=== PATIENT | female | born 2000 | race Caucasian/White ===

== ENCOUNTER 2025-02-03 09:46 | Observation (INO) | payer MEDICARE ==
[~2025-02-03] VITALS: Ht 157.5 cm; Wt 89.5 kg
[~2025-02-03 09:46] MED LIST: CLONI1TA PO; FLUO60TA PO; HYDR-3363 PO; LIDOCAINE 2% 100 MG/5 ML SDV (FOR ANES.) As Ordered ONE; MIDAZOLAM INJ 2 MG/2 ML VIAL As Ordered ONE; OMEP40CA4 PO; ONDANSETRON 4MG/2ML VIAL As Ordered ONE; ROCURONIUM BROMIDE 50MG/5ML VIAL As Ordered ONE; SUGAMMADEX SODIUM 200 MG/2 ML VIAL As Ordered ONE; VYVA30CA4 PO; dexAMETHasone 4 MG/ML 1 ML VIAL As Ordered ONE; dexmedeTOMIDine (4 MCG/ML) 200 MCG/50 ML BTL As Ordered ONE
[2025-02-03 10:26] LABS: PLATELET COUNT, AUTOMATED 271 10^3/uL (150-450)
[2025-02-03 10:44] LABS: CALCIUM LEVEL 9.1 MG/DL (8.5-10.1); CARBON DIOXIDE LEVEL 29.0 MMOL/L (20-31); CHLORIDE LEVEL 104.0 MMOL/L (98-107); CREATININE FOR GFR 0.95 MG/DL (0.55-1.30); GLOMERULAR FILTRATION RATE 84.7 (>60); POTASSIUM SERUM 4.1 MMOL/L (3.5-5.1); SODIUM LEVEL 139.0 MMOL/L (136-145)
[2025-02-03] MEDS ORDERED: HOME MED LIST COMPLETE! XX SCH (11:00)
[2025-02-03] MEDS: SCOPOLAMINE 1MG TRANSDERMAL PATCH TOP ONE (11:22)
[2025-02-03] MEDS: LR 1,000 ML IV SCH ×2 (11:23→18:58)
[2025-02-03] MEDS: ceFAZolin SOD 2 GM IV ONCE IV ONE (13:40)
[2025-02-03] MEDS: HEPARIN SOD 5000 UNITS/ML 1 ML VIAL/SYRINGE SQ ONE (13:45)
[2025-02-03] MEDS ORDERED: LACRILUBE (AKWA TEARS) OPHTH OINT 3.5 GM As Ordered ONE (13:55)
[2025-02-03] MEDS: GENTAMICIN SULF 80 MG/2 ML VIAL As Ordered ONE (14:03)
[2025-02-03] MEDS ORDERED: PHENYLephrine 500MCG 5ML (100MCG/ML) SYRINGE As Ordered ONE (14:08)
[2025-02-03] MEDS ORDERED: ACETAMINOPHEN 1000MG/100ML IV BAG As Ordered ONE (14:12)
[2025-02-03] MEDS ORDERED: HYDROmorphone HCL 2 MG/ML 1 ML VIAL As Ordered ONE (14:58)
[2025-02-03] MEDS ORDERED: ONDANSETRON 4MG/2ML VIAL IV PRN (16:45)
[2025-02-03] MEDS ORDERED: MORPHINE 2 MG/ML 1 ML VIAL IV PRN (16:45)
[2025-02-03 18:30] VITALS: BP 119/60; TEMP 97.5; O2SAT 95
[2025-02-03 19:00] VITALS: BP 110/57; TEMP 97.2; O2SAT 95
[2025-02-03 20:21] VITALS: BP 128/77; TEMP 97.8; O2SAT 96
[2025-02-03 21:16] VITALS: BP 124/66; TEMP 97.7; O2SAT 96
[2025-02-03] MEDS: ceFAZolin SODIUM 2 GM in DEXTROSE 5% (D5W) ADV/MINI-BAG 50 ML IV SCH (22:05)
[2025-02-03] MEDS: ACETAMINOPHEN 325 MG TAB PO PRN (22:06)
[2025-02-03 22:17] VITALS: BP 140/75; TEMP 98; O2SAT 98
[2025-02-03] MEDS: ONDANSETRON 4MG/2ML VIAL IV PRN (23:24)
[2025-02-03] MEDS: PERCOCET 5MG/325MG TAB PO PRN (23:24)
[2025-02-03 23:45] VITALS: BP 126/82; TEMP 98.8; O2SAT 98
[2025-02-04] VITALS (8 sets, daily range): BP systolic 105–118; BP diastolic 55–63; TEMP 97.9–98.8; O2SAT 96–100
[2025-02-04] MEDS: traMADol 50 MG TAB PO PRN (02:40)
[2025-02-04] MEDS ORDERED: ONDANSETRON 4MG/2ML VIAL IV PRN (03:45)
[2025-02-04] MEDS ORDERED: MORPHINE 2 MG/ML 1 ML VIAL IV PRN (03:45)
[2025-02-04] MEDS ORDERED: TRANEXAMIC ACID 100 MG/ML 10ML VIAL As Ordered ONE (03:54)
[2025-02-04] MEDS: ONDANSETRON 4MG/2ML VIAL IV PRN (04:42)
[2025-02-04] MEDS: MORPHINE 2 MG/ML 1 ML VIAL IV PRN (04:54)
[2025-02-04] MEDS: HALOPERIDOL LACTATE 5 MG/ML VIAL IV PRN (05:03)
[2025-02-04 08:31] LABS: PLATELET COUNT, AUTOMATED 268 10^3/uL (150-450)
[2025-02-04] MEDS: FLUoxetine 20 MG CAP PO SCH (09:00)
[2025-02-05 00:52] VITALS: BP 94/71; TEMP 98.3; O2SAT 97
[2025-02-05 05:04] VITALS: BP 110/63; TEMP 98; O2SAT 98
[2025-02-05 09:00] VITALS: BP 108/56; TEMP 97.9; O2SAT 98
[2025-02-05] MEDS ORDERED: PERCOCET PO (12:24)
== END 2025-02-05 13:37 | disposition home or self-care (01) ==
LOC: M SDC 09:46 → M MS5PR 09:47
PROVIDERS: ADMIT Plastic Surgery Surgery of the Hand; ATTEND Plastic Surgery Surgery of the Hand
DX: N62 Hypertrophy of breast (principal); D24.2 Benign neoplasm of left breast; L76.32 Postprocedural hematoma of skin and subcutaneous tissue following other procedure; M54.6 Pain in thoracic spine; M54.2 Cervicalgia; J30.9 Allergic rhinitis, unspecified; F32.A Depression, unspecified; K21.9 Gastro-esophageal reflux disease without esophagitis; N63.23 Unspecified lump in the left breast, lower outer quadrant; Z79.899 Other long term (current) drug therapy
CPT/HCPCS: 10140; 19318; 36415; 80048; 81025; 85027; 88304; 88305; 88307; 96374; 96375; G0378; J0131; J0665; J0666; J0688; J1100; J1171; J1580; J1630; J2250; J2371; J2405; J3010